=== PATIENT | male | born 1995 | race Caucasian/White ===

== ENCOUNTER 2016-12-15 16:57 | Emergency (ER) | payer OTHER ==
[2016-12-15 17:06] VITALS: BP 102/56
--- NOTE | 2016-12-15 18:21 | UC ---
Prakash Rosenbaum Benjamin, scribed for Emmett Warner MD on 12/15/16 at 1815 . Skin Complaint HPI - HPI Summary HPI Summary: 21yo male c/o multiple tick bites last while working at his [employer]. Pt reports fatigue and headache. - History of Current Complaint Chief Complaint: [facility] Time Seen by Provider: 12/15/16 18:07 Stated Complaint: TICK BITES Hx Obtained From: Patient Onset/Duration: Sudden Onset, Lasting Days, Still Present Onset Severity: Mild Current Severity: Mild Pain Intensity: 0 Pain Scale Used: 0-10 Numeric Location: Diffuse - multiple locations Aggravating: Nothing Alleviating: Nothing Associated Signs & Symptoms: Positive: Negative - Allergy/Home Medications Allergies/Adverse Reactions: Allergies Allergy/AdvReac Type Severity Reaction Status Date / Time No Known Allergies Allergy Verified 12/15/16 17:06 Review of Systems Constitutional: Fatigue Skin: Rash - left inner thigh Eyes: Negative ENT: Negative Respiratory: Negative Cardiovascular: Negative Gastrointestinal: Negative Genitourinary: Negative Motor: Negative Neurovascular: Negative Musculoskeletal: Negative Neurological: Negative Psychological: Negative All Other Systems Reviewed And Are Negative: Yes PMH/Surg Hx/FS Hx/Imm Hx Previously Healthy: Yes - Surgical History Surgical History: None - Family History Known Family History: Positive: None Negative: Cardiac Disease, Hypertension, Diabetes - Social History Occupation: Employed Full-time, Student Lives: Alone Alcohol Use: None Substance Use Type: None Smoking Status (MU): Never Smoked Tobacco Physical Exam Triage Information Reviewed: Yes Appearance: Well-Appearing, No Pain Distress, Well-Nourished Vital Signs: Initial Vital Signs Temp 97.8 F 12/15/16 17:02 Pulse 66 12/15/16 17:02 Resp 20 12/15/16 17:02 BP 102/56 12/15/16 17:02 Pulse Ox 100 12/15/16 17:02 Vital Signs Reviewed: Yes Eyes: Positive: Conjunctiva Clear ENT: Positive: Normal ENT inspection Neck: Positive: Supple, Nontender Respiratory: Positive: Chest non-tender, Lungs clear, Normal breath sounds Cardiovascular: Positive: RRR, No Murmur Musculoskeletal: Positive: Strength Intact, ROM Intact Neurological: Positive: Alert, Muscle Tone Normal Psychological: Positive: Age Appropriate Behavior Skin: Positive: rashes - Erythematous red rash on left inner thigh Course/Dx - Course Course Of Treatment: Reviewed medications list. TICK BITES WITH RASH. DISCUSSED RECHECK WITH HIS PMD VERSES TREATMENT AT THIS TIME. THE PATIENT WISHES TREATMENT NOW. RX DOXY. - Diagnoses Provider Diagnoses: TICK BITES WITH RASH Discharge - Discharge Plan Condition: Stable Disposition: HOME Prescriptions: DOXYcycline CAP(*) [DOXYcycline 100MG CAP(*)] 100 mg PO BID #42 cap Patient Education Materials: Tick Bite (ED) Referrals: [facility] [Outside] No Primary Care Phys,NOPCP [Primary Care Provider] - Additional Instructions: FOLLOW UP WITH YOUR DOCTOR. GET RECHECKED FOR ANY WORSENING OF YOUR CONDITION OR QUESTIONS OR CONCERNS. The documentation as recorded by the Prakash mcarthur Benjamin accurately reflects the service I personally performed and the decisions made by me, Emmett Warner MD.
== END 2016-12-15 18:21 | disposition home or self-care (01) ==
LOC: UCEAST 16:57
DX: T14.8 Other injury of unspecified body region (principal); R21 Rash and other nonspecific skin eruption; W57.XXXA Bitten or stung by nonvenomous insect and other nonvenomous arthropods, initial encounter; Y93.H9 Activity, other involving exterior property and land maintenance, building and construction
CPT/HCPCS: 99212; G0463

== ENCOUNTER 2020-11-25 08:42 | Observation (INO) ==
[2020-11-25] MEDS ORDERED: NS 0.9% 1000 ml BAG 1,000 ML IV ONE (09:10)
[2020-11-25] MEDS ORDERED: Albuterol HFA INHALER 8 gm MDI INH ONE (09:12)
[2020-11-25 10:03] LABS: Hematocrit 34 % (42-52); Hemoglobin 11.8 g/dL (14.0-18.0); Mean Corpuscular HGB Conc 35 g/dL (31-36); Mean Corpuscular Hemoglobin 30 pg (27-31); Mean Corpuscular Volume 87 fL (80-94); Platelet Count 277 10^3/uL (150-450); Red Blood Count 3.89 10^6 /uL (4.18-5.48); Red Cell Distribution Width 12 % (10-15); White Blood Count 23.6 10^3/uL (3.5-10.8)
[2020-11-25 10:09] LABS: ABS Eosinophils 0.2 10^3/ul (0-0.6); ABS Lymphocytes 0.8 10^3/ul (1.0-4.8); ABS Monocytes 1.4 10^3/ul (0-0.8); Lymphocyte % 3.5 %
[2020-11-25 10:17] LABS: Albumin/Globulin Ratio 1.3 (1-3); Calcium 8.8 mg/dL (8.6-10.3); EGFR African American 164.9 (>60); EGFR Non-African American 136.3 (>60); Potassium 3.5 mmol/L (3.5-5.0); Total Bilirubin 0.5 mg/dL (0.2-1.0)
[2020-11-25 10:20] LABS: Influenza A Molecular Negative (Negative); Influenza B Molecular Negative (Negative)
[2020-11-25] MEDS ORDERED: Azithromycin 500 mg/250 ml NS 500 MG/250 ML BAG IVPB ONE (10:52)
[2020-11-25] MEDS ORDERED: cefTRIAXone 1 gm/50 mL NS BAG 1 GM/50 ML BAG IV ONE (10:52)
[2020-11-25 12:38] LABS: C Reactive Protein 180.05 mg/L (<8.01)
[2020-11-25] MEDS ORDERED: Al Hydrox/Mg Hydrox/Simet LIQ 30 ML UDC PO PRN (12:57)
[2020-11-25] MEDS ORDERED: NS 0.9% 1000 ml BAG 1,000 ML IV SCH (13:15)
[2020-11-25] MEDS ORDERED: Azithromycin 500 mg/250 ml NS 500 MG/250 ML BAG IVPB SCH (14:00)
[2020-11-26 07:32] LABS: ABS Eosinophils 0.3 10^3/ul (0-0.6); ABS Lymphocytes 1.3 10^3/ul (1.0-4.8); ABS Neutrophils 10.5 10^3/ul (1.5-7.7); Eosinophil % 2.5 %; Hematocrit 31 % (42-52); Lymphocyte % 10.1 %; Mean Corpuscular HGB Conc 35 g/dL (31-36); Mean Corpuscular Hemoglobin 30 pg (27-31); Mean Corpuscular Volume 86 fL (80-94); Mean Platelet Volume 7.3 fL (7.4-10.4); Platelet Count 292 10^3/uL (150-450); Red Blood Count 3.63 10^6 /uL (4.18-5.48); Red Cell Distribution Width 12 % (10-15); White Blood Count 13.2 10^3/uL (3.5-10.8)
[2020-11-26 07:59] LABS: Calcium 8.8 mg/dL (8.6-10.3); EGFR African American 204.2 (>60); EGFR Non-African American 168.8 (>60); Potassium 3.5 mmol/L (3.5-5.0)
[2020-11-26 08:26] VITALS: BP 110/64
[2020-11-26] MEDS ORDERED: cefTRIAXone 1 gm/50 mL NS BAG 1 GM/50 ML BAG IVPB SCH (11:00)
[2020-11-26] MEDS ORDERED: Azithromycin 500 mg/250 ml NS 500 MG/250 ML BAG IVPB SCH (11:30)
== END 2020-11-26 13:50 | disposition home or self-care (01) ==
LOC: ED 08:42 → MED 08:42
PROVIDERS: ADMIT Internal Medicine; ATTEND Hospitalist